=== PATIENT | female | born 1950 | race Caucasian/White ===

== ENCOUNTER → 2016-10-27 | Outpatient (CLI) | payer MEDICARE ==
[~2016-10-27] VITALS: Ht 162.6 cm; Wt 54.9 kg
[~2016-10-27] MED LIST: ASPIR 8181 MG PO; AUGMENTIN 875-1 EACH PO; CARBIDOPA-LEVO1 EAC6 PO; CHRONULAC20 GM/30 M PO; FERROUS SULFAT325 M2 PO; KLONOPIN TAB 00.5 MG PO; LANTUS100 UNIT/1 SQ; LIPITOR TAB 2020 MG PO; LISINOPRIL40 MG PO; LOPRESSOR50 MG PO; MACROBID 100 M100 MG PO; NEURONTIN 300300 MG PO; NORVASC 5 MG TAB5 MG PO; PAXIL40 MG PO; PLAVIX 75 MG TA75 MG PO; PROTONIX40 MG PO; SINGULAIR10 MG PO
== END ==
LOC: OPSV 09:00
DX: G61.81 Chronic inflammatory demyelinating polyneuritis (principal)
CPT/HCPCS: 96365; 96366; J1561; J1642

== ENCOUNTER → 2016-11-30 | Outpatient (CLI) | payer MEDICARE ==
[~2016-11-30] VITALS: Ht 162.6 cm; Wt 54.9 kg
== END ==
LOC: OPSV 11-24 09:00
DX: D64.81 Anemia due to antineoplastic chemotherapy (principal)
CPT/HCPCS: 96365; 96366; J1568; J1642